=== PATIENT | female | born 1995 | race African-American/Black ===

== ENCOUNTER 2018-10-01 07:23 | Day surgery (SDC) | payer OTHER ==
[~2018-10-01] VITALS: Ht 172.7 cm; Wt 63.5 kg
[2018-10-01 07:44] VITALS: BP 122/56
[2018-10-01 13:00] VITALS: BP 128/78
== END 2018-10-01 11:50 | disposition home or self-care (01) ==
LOC: DS 07:23 → OR 09:00 → DS 09:30 → OR 10:00 → DS 11:50
PROVIDERS: Obstetrics & Gynecology
PROC: 0WJJ4ZZ Inspection of Pelvic Cavity, Percutaneous Endoscopic Approach (ICD-10-PCS; principal; 2018-10-01 09:30)
DX: N94.6 Dysmenorrhea, unspecified (principal); N80.9 Endometriosis, unspecified
CPT/HCPCS: C1758; J0330; J0690; J2250; J2270; J2405; J2704; J2710; J3010; J3490; J7120

== ENCOUNTER 2018-10-31 21:14 | Emergency (ER) | payer OTHER ==
[~2018-10-31] VITALS: Ht 175.3 cm; Wt 61.4 kg
[2018-10-31 21:55] LABS: BASOPHIL % 0.4 % (0-2); PLATELET COUNT 218 x10^3mcL (130-400)
[2018-10-31 21:56] LABS: RED CELL DISTRIBUTION WIDTH 14.6 % (11.5-14.5)
[2018-10-31 22:57] VITALS: BP 124/70
== END 2018-10-31 22:57 | disposition home or self-care (01) ==
LOC: ED 21:14
PROVIDERS: Emergency Medicine
DX: G89.29 Other chronic pain (principal); R10.2 Pelvic and perineal pain; J45.909 Unspecified asthma, uncomplicated; Z88.5 Allergy status to narcotic agent; Z87.42 Personal history of other diseases of the female genital tract; Z98.890 Other specified postprocedural states
CPT/HCPCS: 36415; J3010; Q0092